=== PATIENT | female | born 1950 | race African-American/Black ===

== ENCOUNTER 2016-11-19 06:06 | Emergency (ER) | payer MEDICARE ==
[~2016-11-19] VITALS: Ht 167.6 cm; Wt 84.0 kg
[~2016-11-19 06:06] MED LIST: BENA20TA3 PO; HYDR12.529 PO
[2016-11-19] MEDS ORDERED: SODIUM CHLORIDE 0.9% 250 ML IV ONE (07:17)
[2016-11-19 07:30] LABS: BASOPHILS % 0.5 % (0.0-2.0); HEMATOCRIT. 38.6 % (36.0-48.0); HEMOGLOBIN. 13.1 g/dL (12.0-16.0); LYMPHOCYTES % 46.2 % (20.0-50.0); MEAN CORPUSCULAR VOLUME 88.4 fL (81.0-99.0); MEAN PLATELET VOLUME 8.3 fl (7.4-10.4); MONOCYTES % 6.9 % (2.0-8.0); NEUTROPHILS % 42.4 % (40.0-76.0); PLATELET 233 x1000/uL (130-400); RED BLOOD CELL COUNT 4.36 mill/uL (4.2-5.4); RED CELL DISTRIBUTION WIDTH 12.8 % (11.6-14.6)
[2016-11-19] MEDS ORDERED: TRAMADOL 50MG TABLET PO ONE (07:30)
[2016-11-19 07:35] LABS: CHLORIDE 105 mEq/L (98-107)
[2016-11-19 07:41] LABS: CARBON DIOXIDE 31 mEq/L (21-32)
[2016-11-19 10:48] VITALS: BP 139/81
== END 2016-11-19 10:58 | disposition home or self-care (01) ==
LOC: ER 07:45
DX: R51 Headache (principal); D72.819 Decreased white blood cell count, unspecified; R11.0 Nausea; M54.2 Cervicalgia; I10 Essential (primary) hypertension; Z90.710 Acquired absence of both cervix and uterus
CPT/HCPCS: 36415; 80048; 85025; 93005; 96360; 96361; 99285; J7050

== ENCOUNTER 2017-08-26 09:44 | Emergency (ER) | payer MEDICARE ==
[~2017-08-26] VITALS: Ht 165.1 cm; Wt 82.0 kg
[2017-08-26] MEDS ORDERED: KETOROLAC 60MG/2ML VIAL IM ONE (13:30)
[2017-08-26] MEDS ORDERED: ACETAMINOPHEN WITH CODEINE 300/30MG TABLET PO ONE (14:00)
[2017-08-26 15:07] VITALS: BP 134/84
== END 2017-08-26 15:18 | disposition home or self-care (01) ==
LOC: ER 11:44
DX: M54.41 Lumbago with sciatica, right side (principal); I10 Essential (primary) hypertension
CPT/HCPCS: 96372; 99283; J1885

== ENCOUNTER 2018-03-03 05:20 | Emergency (ER) | payer MEDICARE ==
[~2018-03-03] VITALS: Ht 167.6 cm; Wt 83.0 kg
[~2018-03-03 05:20] MED LIST changes: +BENA20TA10 PO; -BENA20TA3 PO
[2018-03-03 06:58] LABS: BASOPHILS % 0.7 % (0.0-2.0); EOSINOPHILS % 3.8 % (0.0-5.0); HEMOGLOBIN. 13.4 g/dL (12.0-16.0); LYMPHOCYTES % 40.6 % (20.0-50.0); MEAN CORPUSCULAR HEMOGLOBIN 30.8 pg (28.0-32.0); MEAN CORPUSCULAR VOLUME 89.5 fL (81.0-99.0); MEAN PLATELET VOLUME 8.4 fl (7.4-10.4); MONOCYTES % 7.6 % (2.0-8.0); NEUTROPHILS % 47.3 % (40.0-76.0); PLATELET 225 x1000/uL (130-400); RED BLOOD CELL COUNT 4.36 mill/uL (4.2-5.4); RED CELL DISTRIBUTION WIDTH 12.8 % (11.6-14.6)
[2018-03-03 07:06] LABS: CHLORIDE 104 mEq/L (98-107)
[2018-03-03 08:55] VITALS: BP 142/82
== END 2018-03-03 08:56 | disposition home or self-care (01) ==
LOC: ER 08:14
DX: R00.2 Palpitations (principal); I10 Essential (primary) hypertension
CPT/HCPCS: 36415; 71045; 80053; 83735; 83880; 84484; 85025; 93005; 99285

== ENCOUNTER 2019-06-29 03:52 | Emergency (ER) | payer MEDICARE ==
[~2019-06-29] VITALS: Ht 165.1 cm; Wt 83.0 kg
[2019-06-29 07:28] LABS: EOSINOPHILS % 2.8 % (0.0-5.0); HEMATOCRIT. 38.1 % (36.0-48.0); HEMOGLOBIN. 12.9 g/dL (12.0-16.0); LYMPHOCYTES % 43.1 % (20.0-50.0); MEAN CORPUSCULAR HEMOGLOBIN 30.6 pg (28.0-32.0); MEAN CORPUSCULAR VOLUME 90.2 fL (81.0-99.0); MEAN PLATELET VOLUME 8.8 fl (7.4-10.4); MONOCYTES % 6.6 % (2.0-8.0); NEUTROPHILS % 46.5 % (40.0-76.0); PLATELET 230 x1000/uL (130-400); RED BLOOD CELL COUNT 4.22 mill/uL (4.2-5.4); RED CELL DISTRIBUTION WIDTH 12.9 % (11.6-14.6)
[2019-06-29 07:35] LABS: CHLORIDE 107 mEq/L (98-107)
[2019-06-29 08:22] VITALS: BP 117/67
== END 2019-06-29 08:24 | disposition home or self-care (01) ==
LOC: ER 03:52
DX: K64.9 Unspecified hemorrhoids (principal); I10 Essential (primary) hypertension; Z90.710 Acquired absence of both cervix and uterus
CPT/HCPCS: 36415; 80053; 85025; 99283

== ENCOUNTER 2019-07-02 12:59 | Emergency (ER) | payer MEDICARE ==
[~2019-07-02] VITALS: Ht 165.1 cm; Wt 82.0 kg
[2019-07-02 16:01] LABS: BASOPHILS % 0.3 % (0.0-2.0); EOSINOPHILS % 3.1 % (0.0-5.0); HEMATOCRIT. 38.9 % (36.0-48.0); HEMOGLOBIN. 13.3 g/dL (12.0-16.0); LYMPHOCYTES % 26.9 % (20.0-50.0); MEAN CORPUSCULAR HEMOGLOBIN 30.7 pg (28.0-32.0); MEAN CORPUSCULAR VOLUME 89.6 fL (81.0-99.0); MEAN PLATELET VOLUME 8.6 fl (7.4-10.4); MONOCYTES % 9.3 % (2.0-8.0); NEUTROPHILS % 60.4 % (40.0-76.0); PLATELET 233 x1000/uL (130-400); RED BLOOD CELL COUNT 4.34 mill/uL (4.2-5.4); RED CELL DISTRIBUTION WIDTH 12.8 % (11.6-14.6)
[2019-07-02 16:06] LABS: CHLORIDE 105 mEq/L (98-107)
[2019-07-02] MEDS ORDERED: ACETAMINOPHEN 325MG TABLET PO ONE (18:15)
[2019-07-02 21:33] VITALS: BP 125/76
== END 2019-07-02 22:17 | disposition short-term general hospital (02) ==
LOC: ER 12:59 → CANBEDREQ 07-03 07:43
DX: R55 Syncope and collapse (principal); I10 Essential (primary) hypertension; Z90.710 Acquired absence of both cervix and uterus
CPT/HCPCS: 36415; 71045; 80053; 84484; 85025; 93005; 99285

== ENCOUNTER 2024-06-12 05:38 | Emergency (ER) | payer MEDICARE, OTHER ==
[~2024-06-12] VITALS: Ht 166.4 cm; Wt 87.4 kg
[~2024-06-12 05:38] MED LIST changes: +BENA-8 PO; -BENA20TA10 PO
[2024-06-12 06:02] VITALS: O2SAT 100
[2024-06-12 09:46] LABS: BASOPHILS % 0.4 % (0.0-2.0); EOSINOPHILS % 1.9 % (0.0-5.0); HEMATOCRIT. 40.3 % (36.0-48.0); HEMOGLOBIN. 13.5 g/dL (12.0-16.0); LYMPHOCYTES % 26.6 % (20.0-50.0); MEAN CORPUSCULAR HGB CONC 33.5 g/dL (31.0-37.0); MEAN CORPUSCULAR VOLUME 92.6 fL (81.0-99.0); MEAN PLATELET VOLUME 8.6 fl (7.4-10.4); MONOCYTES % 7.9 % (2.0-8.0); NEUTROPHILS % 63.2 % (40.0-76.0); PLATELET 234 x1000/uL (130-400); RED BLOOD CELL COUNT 4.36 mill/uL (4.2-5.4); RED CELL DISTRIBUTION WIDTH 12.8 % (11.6-14.6); WHITE BLOOD COUNT 5.6 x1000/uL (4.5-11.0)
[2024-06-12 10:00] LABS: CHLORIDE 103 mEq/L (98-107); POTASSIUM 3.8 mEq/L (3.5-5.1); SODIUM 139 mEq/L (136-145)
[2024-06-12 10:01] LABS: CARBON DIOXIDE 31 mEq/L (21-32)
[2024-06-12 10:06] LABS: GLUCOSE 105 mg/dL (70-105); UREA NITROGEN BLOOD 14 mg/dL (9-23)
[2024-06-12 10:08] LABS: ALANINE AMINOTRANSFERASE 15 IU/L (10-49); ALBUMIN 4.4 g/dL (3.2-4.8); ASPARTATE AMINOTRANSFERASE 19 IU/L (<34); BILIRUBIN DIRECT 0.3 mg/dL (<=3.0)
[2024-06-12 10:09] LABS: BILIRUBIN TOTAL 1.1 mg/dL (0.1-1.0); PROTEIN TOTAL 7.5 g/dL (6.0-8.3)
[2024-06-12 10:33] VITALS: BP 144/87; PULSE 80; RESP 18; TEMP 37.16964; O2SAT 99
== END 2024-06-12 10:36 | disposition home or self-care (01) ==
LOC: ER 05:38
DX: R19.7 Diarrhea, unspecified (principal); I10 Essential (primary) hypertension; Z90.710 Acquired absence of both cervix and uterus; Z98.890 Other specified postprocedural states
CPT/HCPCS: 36415; 80048; 80076; 85025; 99283

== ENCOUNTER 2024-06-14 05:12 | Emergency (ER) | payer OTHER ==
[~2024-06-14] VITALS: Ht 165.1 cm; Wt 86.0 kg
[2024-06-14 05:18] VITALS: TEMP 98.2; O2SAT 100
[2024-06-14 06:06] LABS: CHLORIDE 104 mEq/L (98-107); POTASSIUM 3.7 mEq/L (3.5-5.1); SODIUM 140 mEq/L (136-145)
[2024-06-14 06:07] LABS: CALCIUM 9.6 mg/dL (8.7-10.4); CARBON DIOXIDE 31 mEq/L (21-32)
[2024-06-14 06:09] LABS: BASOPHILS % 0.6 % (0.0-2.0); EOSINOPHILS % 1.7 % (0.0-5.0); HEMOGLOBIN. 12.6 g/dL (12.0-16.0); LYMPHOCYTES % 25.2 % (20.0-50.0); MEAN CORPUSCULAR HEMOGLOBIN 30.9 pg (28.0-32.0); MEAN CORPUSCULAR HGB CONC 33.1 g/dL (31.0-37.0); MEAN CORPUSCULAR VOLUME 93.2 fL (81.0-99.0); MONOCYTES % 11.7 % (2.0-8.0); NEUTROPHILS % 60.8 % (40.0-76.0); PLATELET 227 x1000/uL (130-400); RED BLOOD CELL COUNT 4.08 mill/uL (4.2-5.4); RED CELL DISTRIBUTION WIDTH 12.5 % (11.6-14.6); WHITE BLOOD COUNT 5.8 x1000/uL (4.5-11.0)
[2024-06-14 06:12] LABS: CREATININE 1.2 mg/dL (0.6-1.0); GLUCOSE 120 mg/dL (70-105); UREA NITROGEN BLOOD 20 mg/dL (9-23)
[2024-06-14 06:14] LABS: ALANINE AMINOTRANSFERASE 15 IU/L (10-49); ALBUMIN 4.3 g/dL (3.2-4.8); ASPARTATE AMINOTRANSFERASE 18 IU/L (<34); BILIRUBIN DIRECT 0.3 mg/dL (<=3.0); BILIRUBIN TOTAL 0.9 mg/dL (0.1-1.0)
[2024-06-14 06:15] LABS: PROTEIN TOTAL 7.6 g/dL (6.0-8.3)
[2024-06-14 07:33] LABS: CLARITY URINE CLEAR (CLEAR); COLOR URINE YELLOW (YELLOW); GLUCOSE URINE NEGATIVE (NEGATIVE); KETONES URINE NEGATIVE (NEGATIVE); OCCULT BLOOD URINE NEGATIVE (NEGATIVE); PH URINE 5.5 (4.5-8.0); PROTEIN URINE NEGATIVE (NEGATIVE); SPECIFIC GRAVITY URINE 1.015 (1.005-1.030)
[2024-06-14 07:34] LABS: LEUKOCYTE ESTERASE URINE 1+ (NEGATIVE); NITRITE URINE NEGATIVE (NEGATIVE); UROBILINOGEN URINE 0.2 E.U./dL (0.2-1.0)
[2024-06-14 07:42] LABS: BACTERIA URINE FEW; RBC URINE 0-2 /hpf (0-2); SQUAMOUS EPITHELIAL CELL URINE 1+ /lpf (RARE/1+)
[2024-06-14 07:43] LABS: YEAST URINE NONE SEEN
[2024-06-14] MEDS: DICYCLOMINE HCL 10MG CAPSULE PO ONE (08:20)
[2024-06-14] MEDS: KETOROLAC 30MG/ML VIAL IM ONE (08:20)
[2024-06-14 08:22] VITALS: BP 121/68; PULSE 76; RESP 16; O2SAT 99
[2024-06-14] MEDS ORDERED: BISM-77 MT (08:24)
== END 2024-06-14 08:33 | disposition home or self-care (01) ==
LOC: ER 05:12
DX: R19.7 Diarrhea, unspecified (principal); I10 Essential (primary) hypertension; Z79.899 Other long term (current) drug therapy; Z90.710 Acquired absence of both cervix and uterus
CPT/HCPCS: 99285; 74176; 80076; 80048; 81003; 83605; 83690; 85025; 36415; 93005; 96372; J1885